=== PATIENT | male | born 1945 | race Caucasian/White ===

== ENCOUNTER 2020-11-20 10:08 | Outpatient (CLI) | payer MEDICARE, OTHER | END 2020-11-20 10:09 | disposition home or self-care (01) | LOC: CSHCT 10:08 | PROVIDERS: ATTEND Anesthesiology Pain Medicine | DX: M54.16 Radiculopathy, lumbar region (principal); M47.816 Spondylosis without myelopathy or radiculopathy, lumbar region; I72.3 Aneurysm of iliac artery | CPT/HCPCS: 72131 ==